=== PATIENT | female | born 1960 | race African-American/Black ===

== ENCOUNTER 2020-08-01 22:20 | Emergency (ER) | payer MEDICAID ==
[~2020-08-01] VITALS: Ht 162.6 cm; Wt 104.3 kg
[~2020-08-01 22:20] MED LIST: CYCLOBENZAPRINE10 MG ORAL; MOTRIN400 MG PO; NKM; NORCO 5-325 TA1 EACH ORAL; PRILOSEC40 MG ORAL; ZOFRAN ODT4 MG ORAL
[2020-08-01 22:40] VITALS: BP 151/64
--- NOTE | 2020-08-01 22:40 | Emergency Room Report ---
History of Present Illness General Chief Complaint: Lower Extremity Injury Source: Patient Present Illness HPI Disclaimer: Please note that this report is being documented using DRAGON technology. This can lead to erroneous entry secondary to incorrect interpretation by the dictating instrument. HPI: 59-year-old female history of rheumatoid arthritis, obesity and hypertension presents for evaluation of right knee pain. Patient states over the past 5 days she has had a swelling over the posterior aspect of the right knee. Feels like there is a knot there. Exacerbated by standing. When she stands she feels a shooting pain down the leg. No history of injury. Denies pain over the medial, lateral or anterior portion of the knee, the patella, denies joint instability. Ambulating but hobbling due to pain. She states she took 600 mg ibuprofen yesterday and another dose today with no improvement. Denies history of gout. Denies swelling of the knee. She denies recent travel , history of PE or DVT, hormone use, immobilization, surgery, hypercoagulable state. PMH: Rheumatoid arthritis, obesity, hypertension PSH: Denies Allergies: Penicillin Social Hx: Current smoker Allergies: Coded Allergies: PENICILLINS (Verified Allergy, Severe, Hives, 10/10/12) COVID-19 Screening Contact w/high risk pt: No Experienced COVID-19 symptoms?: No COVID-19 Testing performed NEWSPAPER CORRESPONDENT: No Nursing Documentation-PMH Hx Hypertension: Yes Hx Gastrointestinal Problems: Yes - GERD Review of Systems All Other Systems: negative except mentioned in HPI Physical Exam Vital Signs Date Time Temp Pulse Resp B/P (MAP) Pulse Ox O2 Delivery O2 Flow Rate FiO2 08/01/20 22:20 97.7 82 20 159/57 (91) 98 Room Air General: Awake and alert, no acute distress HEENT: NC/AT. EOMI. Resp: Normal work of breathing Skin: Intact. No abrasions, laceration or rash over the exposed skin MSK: Normal tone and bulk. Moving all extremities. No obvious deformity. Patella in anatomic position. No tenderness, swelling or deformity appreciated of the anterior, posterior or lateral, medial portions of the knee. Joint is stable without laxity in AP or lateral stressing. 2+ PT pulse. No edema. No erythema, no warmth. Tender palpation over the popliteal fossa region without palpable deformity or mass Neuro: Awake and alert. Mentating appropriately Medical Decision Making Diagnostic Impression: Primary Impression: Knee pain ER Course This is 59-year-old female presenting for evaluation of atraumatic anterolateral posterior knee pain. Differential includes was not limited to strain, sprain, Camarena's cyst, DVT. No history of trauma to suggest a bony injury and the joint is stable otherwise, nontender over the bony elements. Patient was treated with intramuscular Toradol. Ultrasound was ordered for DVT and soft tissue. No DVT was identified. No Camarena's cyst identified. vascular technician noted moderate edema. May be secondary to a strain or sprain as she has most of her tenderness in the upper calf. Patient placed in an Porfirio compression bandage, given NSAIDs and crutches. We will follow-up on outpatient basis with orthopedic surgery. Discussed reasons to return to the emergency department. She understands agrees with this treatment plan. CT/MRI/US Diagnostic Results CT/MRI/US Diagnostic Results : Impression Final Report EXAM: US Duplex Right Lower Extremity Veins CLINICAL HISTORY: SWELL TECHNIQUE: Real-time duplex ultrasound scan of the right lower extremity veins integrating B-mode two-dimensional vascular structure, Doppler spectral analysis, color flow Doppler imaging and compression. COMPARISON: No relevant prior studies available. FINDINGS: Deep veins: Unremarkable. No DVT in the visualized common femoral, femoral, proximal deep femoral or popliteal veins. The veins demonstrate normal color flow, are normally compressible, with normal phasic flow and/or augmentation response. Superficial veins: Unremarkable. No thrombus in the visualized great saphenous vein. Soft tissues: No acute findings. No popliteal cyst. IMPRESSION: Normal right lower extremity duplex venous ultrasound. Radiologist: Jong Ash MD Electronically Signed: 08/01/20 23:54 Study ready at 23:39 and initial results transmitted at 23:54 Last Vital Signs Date Time Temp Pulse Resp B/P (MAP) Pulse Ox O2 Delivery O2 Flow Rate FiO2 08/01/20 22:20 97.7 82 20 159/57 (91) 98 Room Air Disposition: HOME, SELF-CARE Condition: Stable Scripts Ibuprofen* (MOTRIN*) 600 Mg Tablet 600 MG ORAL Q6H PRN for For Pain, #30 TAB 0 Refills Prov: Darvin Joel MD 08/01/20 Darvin Joel MD Aug 01, 2020 22:40
[2020-08-01] MEDS ORDERED: Ketorolac 30mg Inj IM ONE (22:45)
[2020-08-01] MEDS ORDERED: IBUPROFEN600 M1 ORAL (23:19)
--- NOTE | 2020-08-01 23:54 | Diagnostic Imaging Report ---
EXAM: US Duplex Right Lower Extremity Veins CLINICAL HISTORY: BINTALL TECHNIQUE: Real-time duplex ultrasound scan of the right lower extremity veins integrating B-mode two-dimensional vascular structure, Doppler spectral analysis, color flow Doppler imaging and compression. COMPARISON: No relevant prior studies available. FINDINGS: Deep veins: Unremarkable. No DVT in the visualized common femoral, femoral, proximal deep femoral or popliteal veins. The veins demonstrate normal color flow, are normally compressible, with normal phasic flow and/or augmentation response. Superficial veins: Unremarkable. No thrombus in the visualized great saphenous vein. Soft tissues: No acute findings. No popliteal cyst. IMPRESSION: Normal right lower extremity duplex venous ultrasound.
[2020-08-02] VITALS: BP_SYST 150; BP_SYST 151; BP_DIAS 64; BP_DIAS 73
== END 2020-08-02 | disposition home or self-care (01) ==
LOC: EMR 22:38
DX: M25.561 Pain in right knee (principal); I10 Essential (primary) hypertension; K21.9 Gastro-esophageal reflux disease without esophagitis; Z88.0 Allergy status to penicillin
CPT/HCPCS: 93971; 96372; J1885; Z7502; 99284